=== PATIENT | female | born 1960 | race Caucasian/White ===

== ENCOUNTER 2018-05-30 22:58 | Emergency (ER) | payer MEDICAID ==
[~2018-05-30] VITALS: Ht 165.1 cm; Wt 90.0 kg
[~2018-05-30 22:58] MED LIST: INSREG SQ; LISI-660 PO; METF500T6 PO
[2018-05-30] MEDS ORDERED: SIMV-259 PO (23:10)
[2018-05-30 23:13] LABS: GLUCOSE,POINT OF CARE 240 MG/DL (70-110)
[2018-05-31] MEDS ORDERED: HYDROCODONE/ACETAMINOPHEN 5-325 MG TABLET PO ONE (00:30)
[2018-05-31 01:42] VITALS: BP 143/77
== END 2018-05-31 01:45 | disposition home or self-care (01) ==
LOC: EMS 22:59
DX: S92.511A Displaced fracture of proximal phalanx of right lesser toe(s), initial encounter for closed fracture (principal); E11.9 Type 2 diabetes mellitus without complications; I10 Essential (primary) hypertension; Z79.4 Long term (current) use of insulin; Z79.84 Long term (current) use of oral hypoglycemic drugs; W31.89XA Contact with other specified machinery, initial encounter; Y93.89 Activity, other specified; Y92.89 Other specified places as the place of occurrence of the external cause; Y99.8 Other external cause status
CPT/HCPCS: 29550; 99284

== ENCOUNTER 2022-03-07 10:14 | Emergency (ER) | payer MEDICAID ==
[~2022-03-07] VITALS: Ht 165.1 cm; Wt 72.7 kg
[~2022-03-07 10:14] MED LIST changes: -LISI-660 PO; +LISI-892 PO; +METF-1211 PO; -METF500T6 PO; +SIMV-259 PO
[2022-03-07] MEDS ORDERED: GLIP-333 PO (10:49)
[2022-03-07 12:02] VITALS: BP 138/65
== END 2022-03-07 13:44 | disposition home or self-care (01) ==
LOC: EMS 10:16
DX: S63.602A Unspecified sprain of left thumb, initial encounter (principal); E11.9 Type 2 diabetes mellitus without complications; I10 Essential (primary) hypertension; W19.XXXA Unspecified fall, initial encounter; Y93.89 Activity, other specified; Y92.89 Other specified places as the place of occurrence of the external cause; Y99.8 Other external cause status
CPT/HCPCS: 82962; 99283